=== PATIENT | female | born 1975 | race Caucasian/White ===

== ENCOUNTER 2021-03-06 13:31 | Emergency (ER) | payer MEDICARE ==
[2021-03-06 15:13] LABS: HEMOGLOBIN 15.5 gm/dl (12.3-15.3); RED BLOOD COUNT 4.89 M/UL (4.00-5.10); WHITE BLOOD COUNT 11.9 K/UL (4.5-11.0)
[2021-03-06 16:01] LABS: BUN/CREATININE RATIO 6 (0-10)
[2021-03-06] MEDS ORDERED: TENORMIN 50 MG50 MG PO (18:32)
[2021-03-06] MEDS ORDERED: LISINOPRIL20 MG PO (18:32)
== END 2021-03-06 19:00 | disposition home or self-care (01) ==
LOC: ER1 13:31
PROVIDERS: Emergency Medicine
DX: K62.5 Hemorrhage of anus and rectum (principal); E03.9 Hypothyroidism, unspecified; K21.9 Gastro-esophageal reflux disease without esophagitis; E78.5 Hyperlipidemia, unspecified; J44.9 Chronic obstructive pulmonary disease, unspecified; E11.9 Type 2 diabetes mellitus without complications; I10 Essential (primary) hypertension; F17.200 Nicotine dependence, unspecified, uncomplicated; E87.6 Hypokalemia; I25.10 Atherosclerotic heart disease of native coronary artery without angina pectoris; Z90.49 Acquired absence of other specified parts of digestive tract
CPT/HCPCS: 80053; 81001; 83690; 84703; 85025; 85610; 85730; 96374; 96375; 96376; 99284; J2270; J2405; Q9967

== ENCOUNTER → 2021-07-22 | Outpatient (CLI) | payer MEDICARE, OTHER ==
[~2021-07-22] MED LIST: LISINOPRIL20 MG PO; TENORMIN 50 MG50 MG PO
== END ==
LOC: HEART 5 14:25
DX: J44.9 Chronic obstructive pulmonary disease, unspecified (principal)
CPT/HCPCS: 94060; 94729

== ENCOUNTER → 2021-08-17 | Outpatient (CLI) | payer MEDICARE, OTHER | LOC: KOH-I 13:30 | DX: Z87.891 Personal history of nicotine dependence (principal); R91.8 Other nonspecific abnormal finding of lung field | CPT/HCPCS: 71250 ==